=== PATIENT | male | born 1965 | race Hispanic/Latino ===

== ENCOUNTER 2023-12-10 19:04 | Emergency (ER) | payer SELFPAY ==
[2023-12-10 19:07] VITALS: BP 158/93
--- NOTE | 2023-12-10 19:31 | ED.GENMED ---
History of Present Illness
General
Chief Complaint: Skin Surface Trauma
Source: patient
Time Seen by Provider: 12/10/23 19:26
Travel History
Have you had any contact with someone who has COVID-19?: No
Do you have any symptoms of coronavirus? Fever > 100 degrees, chills, cough, shortness of breath, sore throat, loss of taste or smell, muscle aches, or headache?: No
History of Present Illness
History of Present Illness:
58-year-old male presenting to the emergency department for evaluation after he was outside using a lawn edger when a stick was on the ground and struck him on the right side of the face and embedded itself within the skin of the right cheek.
Patient was nervous to take the foreign body out so presented to the emergency department. Of note patient is on Coumadin. He denies any visual changes or ocular pain. No other injuries were sustained. Patient is unsure of his last tetanus
vaccine
Past History
Past History
ED Past Medical History: HTN and Hypercholesterolemia
ED Past Surgical History: Cardiac
Social History
Tobacco: Non-smoker
Alcohol: None
Drug: None
Personal:
Living: with family
Employment: Employed
Review of Systems
Review of Systems
All Other Systems: ROS reviewed and negative except as documented in HPI and ROS
Phy Exam
Physical Exam
Physical Exam:
GENERAL: Alert , in no apparent distress
EYE: conjunctiva clear, no surrounding ocular injury
Head: Normocephalic atraumatic
NECK: Supple,
ENT: mmm.
LUNGS: no acute respiratory distress
NEUROLOGICAL: Alert and oriented
SKIN: Warm and dry, Foreign body along the right maxillary region. Dried blood surrounding.
MUSCULOSKELETAL: well perfused.
PSYCH: Normal and appropriate interaction.
Scores
Heart Failure Risk
Heart Failure Risk Score: Not Applicable
Heart Score for Chest Pain Patients
STEMI patient?: Not applicable
Withdrawal Assessment of Alcohol
Withdrawal Assessment Completed?: Not applicable
Course
Orders/Labs/Results
Orders:
Orders
12/10/23 19:30
Cephalexin Monohydrate [Keflex] 500 mg PO NOW STA
Tetanus/Diphth/Acelpertussis [Adacel] 0.5 ml IM .ONCE ONE
Vital Signs
Initial and Last Documented VS:
Initial Vital Signs
Temp Pulse Resp BP Pulse Ox
98.1 F 67 18 158/93 99
12/10/23 19:07 12/10/23 19:07 12/10/23 19:07 12/10/23 19:07 12/10/23 19:07
Last Documented Vital Signs
Temp Pulse Resp BP Pulse Ox
98.1 F 67 18 158/93 99
12/10/23 19:07 12/10/23 19:07 12/10/23 19:07 12/10/23 19:07 12/10/23 19:07
Procedures
Foreign Body Removal-Skin
Wound explored and foreign body removed?: Yes
Foreign body removed: completely
MDM/Problems Addressed
MDM/Problems Addressed:
58-year-old male presenting to the emergency department for evaluation after he accidentally had a small stick hit the right side of his face while using a lawn after. Foreign body embedded. I was able to easily remove the foreign body with some
gentle pressure with the foreign body remaining intact. Irrigated the wound which was only 2 mm in size. Will start the patient on Keflex for infection prevention. Otherwise stable for discharge home.
*Pulse Oximetry
Patient hypoxic: no
*Critical Care Note
Total Time (30-74mins, 75-104mins- exclusive of procedures): Not Applicable
ED Attending Note
-
Portions of this chart may have been created with voice recognition software.� Occasional wrong word or��sound alike� substitutions may have occurred due to the inherent limitations of voice recognition software.
Discharge Plan
Departure
Patient Disposition: Home (Routine Discharge)
Date of Disposition: 12/10/23
Time of Disposition: 19:31
Patient with high blood pressure during this ER visit?: Yes
Discharge Problem:
Abrasion of face
Instructions: Wound Care (DC)
Prescriptions:
New
cephalexin 500 mg tablet
500 mg PO BID 5 Days Qty: 10 0RF
Interventions
Interventions:
*Neglect/Abuse Screening Last Done: 12/10/23 19:11
ED-Skin Assessment Last Done: 12/10/23 19:25
Discharge Date and Time
Print Language: SLOVAK
[2023-12-10] MEDS: KEFLEX 500 MG PO (19:50)
[2023-12-10] MEDS: ADACEL 0.5 ML IM (19:51)
[2023-12-10 20:07] VITALS: BP 132/96
[2023-12-10 20:09] VITALS: BP 132/96
== END 2023-12-10 20:10 | disposition home or self-care (01) ==
LOC: EMR 19:04
PROVIDERS: EMERGENCY PHYSICIAN Emergency Medicine
DX: S00.81XA Abrasion of other part of head, initial encounter (principal); S00.85XA Superficial foreign body of other part of head, initial encounter; W20.8XXA Other cause of strike by thrown, projected or falling object, initial encounter; W45.8XXA Other foreign body or object entering through skin, initial encounter; I10 Essential (primary) hypertension; Z23 Encounter for immunization; Z79.01 Long term (current) use of anticoagulants
CPT/HCPCS: 99282; 90471; 90715